=== PATIENT | male | born 1980 | race Caucasian/White ===

== ENCOUNTER 2020-11-10 08:33 | Emergency (ER) | payer OTHER ==
[2020-11-10] MEDS ORDERED: AUGMENTIN 875-1 EACH PO (11:12)
== END 2020-11-10 11:21 | disposition home or self-care (01) ==
LOC: ER1 08:33
DX: S30.21XA Contusion of penis, initial encounter (principal); J32.9 Chronic sinusitis, unspecified; X58.XXXA Exposure to other specified factors, initial encounter
CPT/HCPCS: 81001; 99283

== ENCOUNTER 2021-12-22 11:47 | Emergency (ER) | payer OTHER ==
[~2021-12-22 11:47] MED LIST changes: -ELIQUIS 5 MG TAB5 MG PO
[2021-12-22 12:49] LABS: BUN/CREATININE RATIO 13 (0-10)
[2021-12-22 12:58] LABS: HEMOGLOBIN 17.4 gm/dl (14.0-17.5); RED BLOOD COUNT 5.37 M/UL (4.20-5.50); WHITE BLOOD COUNT 7.9 K/UL (4.5-11.0)
[2021-12-22] MEDS ORDERED: ELIQUIS 5 MG TAB5 MG PO (13:35)
[2021-12-24 10:12] LABS: DRVVT 39.9 sec (0.0-47.0); LUPUS REFLEX INTERPRETATION Comment: (.); PTT-LA 33.8 sec (0.0-51.9); THROMBIN TIME 19.4 sec (0.0-23.0)
== END 2021-12-22 14:35 | disposition home or self-care (01) ==
LOC: ER1 11:47
PROVIDERS: Physician Assistant
DX: I82.401 Acute embolism and thrombosis of unspecified deep veins of right lower extremity (principal)
CPT/HCPCS: 80048; 85025; 85610; 85611; 85730; 99283

== ENCOUNTER → 2021-12-22 | Outpatient (CLI) | payer OTHER ==
[~2021-12-22] MED LIST: AUGMENTIN 875-1 EACH PO; ELIQUIS 5 MG TAB5 MG PO
== END ==
LOC: EXRD 11:00
DX: R22.41 Localized swelling, mass and lump, right lower limb (principal); I82.4Z1 Acute embolism and thrombosis of unspecified deep veins of right distal lower extremity
CPT/HCPCS: 93971